=== PATIENT | female | born 1965 | race Caucasian/White ===

== ENCOUNTER → 2016-09-05 | Outpatient (CLI) | payer BC ==
[2014-09-17 08:29] VITALS: BP 140/81
[~2016-09-05] MED LIST: ASPI81TA2 PO; CALC1CAP8 PO; CYAN10005 PO; ETHI1TAB PO; FENO160T PO; FERR159T3 PO; FLAX100031 PO; MULT-18 PO; OMEG1CAP2 PO
--- NOTE | 2016-09-05 13:12 | KCIC ---
PROCEDURE Bilateral digital screening mammogram. HISTORY 51-year-old female presents for screening mammography. TECHNIQUE Full field digital craniocaudal and mediolateral oblique views of both breasts are obtained. Computer-aided detection is applied. COMPARISON 09/10/2015 FINDINGS Breast parenchymal composition: Level B - Scattered fibroglandular densities. There is nodular density within the slightly inferior aspect of the left breast on the mediolateral oblique view and slightly medial aspect of the left breast on the craniocaudal view, more conspicuous compared to prior studies. There are benign calcifications bilaterally. There is a biopsy clip with surrounding stable density within the 12 o'clock position of the right breast. IMPRESSION BI-RADS Category 0: Needs additional imaging. Further evaluation with a full field true lateral view and spot compression views of the left breast to assess increasing densities is recommended. Sonographic imaging may also be performed if deemed indicated based on additional imaging findings. The patient will be contacted to return for additional imaging. Mammography is not 100% sensitive in detecting breast cancer. Therefore, a self breast exam and a clinical breast exam are very important. A negative mammogram does not negate a clinically suspicious finding and should not result in a delay in biopsying a clinically suspicious abnormality. Electronically signed by: Tiana Vaughn (Sep 05, 2016 13:10:04)
== END | disposition home or self-care (01) ==
LOC: KCIC MAMMO 12:27
PROVIDERS: ATTEND Internal Medicine
DX: Z12.31 Encounter for screening mammogram for malignant neoplasm of breast (principal)
CPT/HCPCS: G0202; 77067

== ENCOUNTER → 2016-09-13 | Outpatient (CLI) | payer BC ==
[2014-09-17 08:29] VITALS: BP 140/81
--- NOTE | 2016-09-13 14:05 | RAD ---
DATE: 09/13/16 EXAM: DIGITAL DIAGNOSTIC LT, BREAST LEFT HISTORY: Follow-up abnormal mammogram COMPARISON: 09/05/16 This study was interpreted with the benefit of Computerized Aided Detection (CAD). TECHNIQUE: 90 degrees mediolateral, CC and MLO spot compression views of the left breast are obtained. FINDINGS: Diagnostic left mammogram: The nodular density seen previously in the screening mammogram appears to mostly blend in with the surrounding fibroglandular tissues. Faint asymmetric density however persists. Benign appearing calcifications are seen. Left breast ultrasound: Sonographic evaluation of the inferior medial left breast is performed. Normal fibroglandular densities are seen. No solid or cystic mass lesions are identified. IMPRESSION: No definite persistent mammographic or sonographic abnormality seen. Patient may return to annual screening mammogram. BI-RADS CATEGORY: 2 BENIGN FINDING(S) RECOMMENDED FOLLOW-UP: 12M 12 MONTH FOLLOW-UP PQRS compliance statement: Patient information was entered into a reminder system with a target due date for the next mammogram. Mammography is a sensitive method for finding small breast cancers, but it does not detect them all and is not a substitute for careful clinical examination. A negative mammogram does not negate a clinically suspicious finding and should not result in delay in biopsying a clinically suspicious abnormality. "Our facility is accredited by the [employer] Mammography [employer]."
== END | disposition home or self-care (01) ==
LOC: KCIC MAMMO 12:14
PROVIDERS: ATTEND Internal Medicine
DX: R92.8 Other abnormal and inconclusive findings on diagnostic imaging of breast (principal); N63 Unspecified lump in breast
CPT/HCPCS: 76641; G0206; 77065

== ENCOUNTER → 2017-09-11 | Outpatient (CLI) | payer OTHER | END | disposition home or self-care (01) | LOC: KCIC MAMMO 14:17 | DX: Z12.31 Encounter for screening mammogram for malignant neoplasm of breast (principal) | CPT/HCPCS: 77063; 77067 ==

== ENCOUNTER → 2018-09-12 | Outpatient (CLI) | payer OTHER ==
[2014-09-17 08:29] VITALS: BP 140/81
[~2018-09-12] MED LIST changes: +ASPI-630 PO; -ASPI81TA2 PO
--- NOTE | 2018-09-12 16:36 | KCIC ---
Bilateral digital screening mammograms with 3-D tomosynthesis: Reason for examination: Routine screening. Comparison is made to previous studies dated back to 09/04/2015. Bilateral mammograms in CC and oblique projections were obtained with 2-D imaging and 3-D tomosynthesis imaging on a Siemens Inspiration unit and reviewed on the workstation. Interpretation was made with the benefit of CAD. The skin and nipples show no abnormalities. No abnormal axillary lymph nodes are seen. The breast parenchyma shows scattered fatty and fibroglandular density. (Breast density: Category B.) There continues to be a nodular density centrally in the right breast on cc view which is decreasing in size. There are scattered benign calcifications seen. There are no new dominant masses, suspicious calcifications or architectural distortion. Impression: No evidence of malignancy. Recommend routine screening. BI-RAD Category 2: Benign. "Our facility is accredited by the [employer] Mammography [employer]." This patient's information has been entered into a reminder system for the patient to be notified with the results of her examination and a target date for the next mammogram. Electronically signed by: Vibha Cleveland MD (09/12/2018 4:33 PM) [id number]
== END ==
LOC: KCIC MAMMO 12:30
PROVIDERS: ATTEND Obstetrics & Gynecology
DX: Z12.31 Encounter for screening mammogram for malignant neoplasm of breast (principal)
CPT/HCPCS: 77063; 77067

== ENCOUNTER → 2019-09-18 | Outpatient (CLI) | payer OTHER ==
[2014-09-17 08:29] VITALS: BP 140/81
[~2019-09-18] MED LIST changes: +CYAN-25 PO; -CYAN10005 PO
--- NOTE | 2019-09-18 15:57 | KCIC ---
Bilateral digital screening mammograms with 3-D tomosynthesis: Reason for examination: Routine screening. Comparison is made to previous studies dated 09/12/2018 and 09/11/2017. Bilateral mammograms in CC and oblique projections were obtained with 2-D imaging and 3-D tomosynthesis imaging on a Siemens Inspiration unit and reviewed on the workstation. Interpretation was made with the benefit of CAD. The skin and nipples show no abnormalities. No abnormal axillary lymph nodes are seen. The breast parenchyma shows scattered fatty and fibroglandular density. (Breast density: Category B.) There continues to be a small benign-appearing nodule in the lower inner quadrant of the right breast. There are no new dominant masses, suspicious calcifications or architectural distortion. Benign calcifications are present. Impression: No evidence of malignancy. Recommend routine screening. BI-RAD Category 2: Benign. "Our facility is accredited by the [employer]ammography [employer]." This patient's information has been entered into a reminder system for the patient to be notified with the results of her examination and a target date for the next mammogram. Electronically signed by: Vibha Cleveland MD (09/18/2019 3:54 PM) [email or web address]
== END ==
LOC: KCIC MAMMO 14:01
PROVIDERS: ATTEND Obstetrics & Gynecology
DX: Z12.31 Encounter for screening mammogram for malignant neoplasm of breast (principal)
CPT/HCPCS: 77063; 77067

== ENCOUNTER → 2020-09-22 | Outpatient (CLI) | payer OTHER ==
[2014-09-17 08:29] VITALS: BP 140/81
--- NOTE | 2020-09-22 17:05 | KCIC ---
Bilateral digital screening mammograms with 3-D tomosynthesis: Reason for examination: Routine screening. Comparison is made to previous studies dated back to 09/10/2015. Bilateral mammograms in CC and oblique projections were obtained with 2-D imaging and 3-D tomosynthes is imaging on a Siemens Inspiration unit and reviewed on the workstation. Interpretation was made wit h the benefit of CAD. The skin and nipples show no abnormalities. No abnormal axillary lymph nodes are seen. The breast par enchyma shows scattered fatty and fibroglandular density. (Breast density: Category B.) There continu es to be a small circumscribed nodule in the 4:00 B position of the right breast which is stable. The re continues be a small parenchymal density at the biopsy site at the 12:00 B position of the right b reast which is stable. There are no new dominant masses, suspicious calcifications or architectural d istortion. Benign calcifications are present. Impression: No evidence of malignancy. Recommend routine screening. BI-RAD Category 2: Benign. "Our facility is accredited by the [employer] Mammography [employer]." This patient's information has been entered into a reminder system for the patient to be notified wit h the results of her examination and a target date for the next mammogram. Electronically signed by: Vibha Cleveland MD (09/22/2020 5:03 PM) [email or web address]
== END ==
LOC: KCIC MAMMO 14:16
PROVIDERS: ATTEND Internal Medicine
DX: Z12.31 Encounter for screening mammogram for malignant neoplasm of breast (principal)
CPT/HCPCS: 77063; 77067

== ENCOUNTER → 2021-09-23 | Outpatient (CLI) | payer OTHER ==
[2014-09-17 08:29] VITALS: BP 140/81
--- NOTE | 2021-09-23 15:59 | KCIC ---
Bilateral digital screening mammograms with 3-D tomosynthesis: Reason for examination: Routine screening. Comparison is made to previous studies dated back to 09/05/2016. Bilateral mammograms in CC and oblique projections were obtained with 2-D imaging and 3-D tomosynthes is imaging on a Siemens Inspiration unit and reviewed on the workstation. Interpretation was made wit h the benefit of CAD. The skin and nipples show no abnormalities. No abnormal axillary lymph nodes are seen. The breast par enchyma shows scattered fatty and fibroglandular density. (Breast density: Category B.) There continu es to be a small parenchymal density adjacent to the biopsy clip at the 12:00 B position of the right breast centrally. There also continues to be a small circumscribed nodule in the 4:00 B position of right breast which is stable. There are no new dominant masses, suspicious calcifications or architec tural distortion. Benign calcifications are present. Impression: No evidence of malignancy. Recommend routine screening. BI-RAD Category 2: Benign. "Our facility is accredited by the [employer] Mammography [employer]." This patient's information has been entered into a reminder system for the patient to be notified wit h the results of her examination and a target date for the next mammogram. Electronically signed by: Vibha Cleveland MD (09/23/2021 3:57 PM) [email or web address]
== END ==
LOC: KCIC MAMMO 14:08
PROVIDERS: ATTEND Obstetrics & Gynecology
DX: Z12.31 Encounter for screening mammogram for malignant neoplasm of breast (principal)
CPT/HCPCS: 77063; 77067